=== PATIENT | male | born 1940 | race Caucasian/White ===

== ENCOUNTER → 2018-07-09 | Outpatient (REF) | payer MEDICARE ==
[2018-07-09 11:53] LABS: HEMATOCRIT 40.1 % (42.0-52.0); HEMOGLOBIN 13.7 g/dl (13.5-17.5); MEAN CORPUSCULAR HEMOGLOBIN 30.6 pg (27.0-33.0); MEAN CORPUSCULAR HGB CONC 34.2 g/dl (32.0-36.5); MEAN CORPUSCULAR VOLUME 89.5 fl (80.0-96.0); PLATELET COUNT, AUTOMATED 223 10^3/uL (150-450); RED BLOOD COUNT 4.48 10^6/uL (4.30-6.10); RED CELL DISTRIBUTION WIDTH 12.9 % (11.5-14.5); WHITE BLOOD COUNT 6.6 10^3/uL (4.0-10.0)
[2018-07-09 12:29] LABS: TOTAL 25(OH) VITAMIN D 26.3 NG/ML (30.0-100.0)
[2018-07-09 12:31] LABS: FOLATE 14.1 NG/ML (>5.4); VITAMIN B12 LEVEL 528 PG/ML (247-911)
[2018-07-09 12:49] LABS: MAU/CREAT RATIO 5.6 MCG/MG (0.0-30.0)
[2018-07-09 13:05] LABS: ALBUMIN 3.5 GM/DL (3.2-5.2); ALBUMIN/GLOBULIN RATIO 1.25 (1.00-1.93); ALKALINE PHOSPHATASE 129 U/L (45-117); ALT/SGPT 22 U/L (12-78); ANION GAP 7 MEQ/L (8-16); AST/SGOT 19 U/L (7-37); BILIRUBIN,TOTAL 0.5 MG/DL (0.2-1.0); BLOOD UREA NITROGEN 17 MG/DL (7-18); CALCIUM LEVEL 8.7 MG/DL (8.8-10.2); CARBON DIOXIDE LEVEL 30 MEQ/L (21-32); CHLORIDE LEVEL 106 MEQ/L (98-107); CHOLESTEROL LEVEL 154 MG/DL (<200); CREATININE FOR GFR 0.98 MG/DL (0.70-1.30); GLOMERULAR FILTRATION RATE > 60.0 (>42); GLUCOSE, FASTING 103 MG/DL (70-100); HDL CHOLESTEROL 55 MG/DL (>40); LDL CHOLESTEROL 83.4 MG/DL (<100); NON-HDL-C 99 MG/DL; POTASSIUM SERUM 4.6 MEQ/L (3.5-5.1); SODIUM LEVEL 143 MEQ/L (136-145); TOTAL PROTEIN 6.3 GM/DL (6.4-8.2); TRIGLYCERIDES LEVEL 78 MG/DL (<150)
[2018-07-09 13:22] LABS: ESTIMATED AVERAGE GLUCOSE 126 MG/DL (60-110)
== END ==
LOC: M SFHCPLAZ 09:16
DX: E11.9 Type 2 diabetes mellitus without complications (principal); R20.2 Paresthesia of skin; Z13.220 Encounter for screening for lipoid disorders; K59.00 Constipation, unspecified; E55.9 Vitamin D deficiency, unspecified; Z79.899 Other long term (current) drug therapy
CPT/HCPCS: 82746

== ENCOUNTER → 2018-09-09 | Outpatient (CLI) | payer MEDICARE | LOC: M RAD 06:31 | DX: I87.321 Chronic venous hypertension (idiopathic) with inflammation of right lower extremity (principal); Z53.9 Procedure and treatment not carried out, unspecified reason ==

== ENCOUNTER → 2018-09-19 | Outpatient (CLI) | payer MEDICARE | LOC: M RAD 12:50 | DX: L97.929 Non-pressure chronic ulcer of unspecified part of left lower leg with unspecified severity (principal); I87.312 Chronic venous hypertension (idiopathic) with ulcer of left lower extremity | CPT/HCPCS: 93971 ==

== ENCOUNTER 2018-12-23 10:19 | Emergency (ER) | payer MEDICARE ==
[~2018-12-23] VITALS: Ht 177.8 cm; Wt 77.7 kg
[2018-12-23] MEDS ORDERED: FLOM0.4C39 PO (10:47)
[2018-12-23] MEDS ORDERED: METF500T13 PO (10:47)
[2018-12-23] MEDS ORDERED: ASPI1TAB15 PO (10:47)
[2018-12-23] MEDS ORDERED: TRIA1CR80 TOP (10:47)
[2018-12-23] MEDS ORDERED: VITATAB11 PO (10:47)
[2018-12-23] MEDS ORDERED: COLA100C5 PO (10:47)
[2018-12-23] MEDS ORDERED: VITA100067 PO (10:47)
[2018-12-23] MEDS ORDERED: PRAV10TA4 PO (10:47)
[2018-12-23 11:04] LABS: BASO # 0.1 10^3/uL (0.0-0.2); BASO % 0.9 % (0.0-1.0); EOS # 0.1 10^3/uL (0.0-0.50); EOS % 1.1 % (0.0-3.0); HEMATOCRIT 36.6 % (42.0-52.0); HEMOGLOBIN 12.7 g/dl (13.5-17.5); LYMPH # 1.4 10^3/uL (1.5-4.5); LYMPH % 18.2 % (24.0-44.0); MEAN CORPUSCULAR HEMOGLOBIN 30.8 pg (27.0-33.0); MEAN CORPUSCULAR HGB CONC 34.7 g/dl (32.0-36.5); MEAN CORPUSCULAR VOLUME 88.8 fl (80.0-96.0); MONO # 0.7 10^3/uL (0.0-0.8); MONO % 8.6 % (0.0-5.0); NEUTROPHILS # 5.3 10^3/uL (1.8-7.7); NEUTROPHILS % 70.7 % (36.0-66.0); PLATELET COUNT, AUTOMATED 230 10^3/uL (150-450); RED BLOOD COUNT 4.12 10^6/uL (4.30-6.10); WHITE BLOOD COUNT 7.5 10^3/uL (4.0-10.0)
[2018-12-23 11:17] LABS: ALBUMIN 3.1 GM/DL (3.2-5.2); ALT/SGPT 17 U/L (12-78); BILIRUBIN,DIRECT 0.2 MG/DL (0.0-0.2); BILIRUBIN,TOTAL 0.6 MG/DL (0.2-1.0); BLOOD UREA NITROGEN 16 MG/DL (7-18); CALCIUM LEVEL 8.5 MG/DL (8.8-10.2); CARBON DIOXIDE LEVEL 25 MEQ/L (21-32); CHLORIDE LEVEL 105 MEQ/L (98-107); CK-MB VALUE MASS < 1.0 NG/ML (<3.6); CPK CREATINE PHOSPHOKINASE 38 U/L (39-308); CREATININE FOR GFR 0.89 MG/DL (0.70-1.30); GLOMERULAR FILTRATION RATE > 60.0 (>42); GLUCOSE, FASTING 115 MG/DL (70-100); MB/CK RELATIVE INDEX 2.63 (< OR =4); POTASSIUM SERUM 4.4 MEQ/L (3.5-5.1); SODIUM LEVEL 138 MEQ/L (136-145); TOTAL PROTEIN 6.1 GM/DL (6.4-8.2); TROPONIN I < 0.02 NG/ML (< 0.10)
[2018-12-23] MEDS ORDERED: MECLIZINE 25 MG TABLET PO ONE (12:00)
--- NOTE | 2018-12-23 12:20 | REP ---
CT Head without contrast HISTORY: Dizziness half COMPARISON: None Areas of decreased attenuation are present in the periventricular white matter. This represents small-vessel ischemic disease. There is no intraparenchymal hemorrhage, acute infarct, mass or midline shift. The ventricular system and cortical sulci as well as subarachnoid space in the posterior fossa are dilated consistent with mild volume loss. There is no extra cerebral collection. There is no fracture. The visualized sinuses are clear. IMPRESSION: 1. Small vessel ischemic disease. 2. Mild volume loss. Electronically Signed by Jimmy Isaacs MD 12/23/2018 12:12 P
--- NOTE | 2018-12-23 14:35 | REP ---
MR BRAIN WITHOUT CONTRAST: HISTORY: Dizziness. COMPARISON: CT 12/23/2018. Areas of increased signal intensity on T2-weighted images are present in the periventricular and subcortical white matter. This represents small vessel ischemic disease. There is no intraparenchymal hemorrhage, infarct, mass or midline shift. The ventricular system and cortical sulci as well as subarachnoid space and the posterior fossa are dilated consistent with mild volume loss. There is no extracerebral collection. Mucosal thickening is present in the left maxillary sinus. IMPRESSION: 1. Small vessel ischemic disease. 2. Mild volume loss. Electronically Signed by Jimmy Isaacs MD 12/23/2018 02:39 P
[2018-12-23] MEDS ORDERED: MECL-86 PO (15:44)
[2018-12-23 16:01] VITALS: BP 185/80
--- NOTE | 2018-12-24 17:31 | ECGEPIP ---
Stationary ECG Study [facility] - ED Test Date: 2018-12-23 Pat Name: JOHNNY BENZ Department: Room: - Gender: M [employer]: : 1940 Requested By: Wallace Segundo Order Number: [id number] Reading MD: Dilma Sauer Measurements Intervals [place] Rate: 54 P: 60 WI: 166 QRS: 68 QRSD: 152 T: 52 QT: 423 QTc: 401 Interpretive Statements SINUS BRADYCARDIA RIGHT BUNDLE BRANCH BLOCK NO PRIOR FOR COMPARISON Electronically Signed On 12-24-2018 17:31:32 EST by Dilma Sauer
== END 2018-12-23 16:06 | disposition home or self-care (01) ==
LOC: M ED 10:19 → EDBD 10:19 → M ED 16:06
DX: H83.09 Labyrinthitis, unspecified ear (principal); R00.1 Bradycardia, unspecified; I45.10 Unspecified right bundle-branch block; I51.9 Heart disease, unspecified; E11.9 Type 2 diabetes mellitus without complications; N40.0 Benign prostatic hyperplasia without lower urinary tract symptoms; Z88.0 Allergy status to penicillin; Z79.899 Other long term (current) drug therapy; Z79.84 Long term (current) use of oral hypoglycemic drugs; Z79.82 Long term (current) use of aspirin

== ENCOUNTER → 2019-04-04 | Outpatient (CLI) | payer MEDICARE ==
[~2019-04-04] MED LIST: ASPI1TAB15 PO; COLA100C5 PO; FLOM0.4C39 PO; MECL-86 PO; METF500T13 PO; PRAV10TA4 PO; TRIA1CR80 TOP; VITA100067 PO; VITATAB11 PO
[2019-04-04 11:20] LABS: BLOOD UREA NITROGEN 16 MG/DL (7-18); CREATININE FOR GFR 0.85 MG/DL (0.70-1.30); GLOMERULAR FILTRATION RATE > 60.0 (>42)
== END ==
LOC: M LAB 10:22
PROVIDERS: ATTEND Psychiatry & Neurology Neurology
DX: I10 Essential (primary) hypertension (principal)

== ENCOUNTER → 2019-07-10 | Outpatient (REF) | payer MEDICARE ==
[2019-07-10 12:40] LABS: HEMOGLOBIN A1c 6.2 %
[2019-07-10 12:44] LABS: BLOOD UREA NITROGEN 14 MG/DL (7-18); CARBON DIOXIDE LEVEL 30 MEQ/L (21-32); CHLORIDE LEVEL 105 MEQ/L (98-107); CREATININE FOR GFR 0.93 MG/DL (0.70-1.30); GLOMERULAR FILTRATION RATE > 60.0 (>42); GLUCOSE, FASTING 105 MG/DL (70-100); POTASSIUM SERUM 4.1 MEQ/L (3.5-5.1); SODIUM LEVEL 140 MEQ/L (136-145)
[2019-07-10 12:54] LABS: MALB URINE SIEMENS 17.1 MG/L
== END ==
LOC: M SFHCPLAZ 09:49
PROVIDERS: ATTEND Family Medicine
DX: E11.9 Type 2 diabetes mellitus without complications (principal)

== ENCOUNTER 2020-11-07 15:05 | Emergency (ER) | payer MEDICARE ==
[~2020-11-07] VITALS: Ht 177.8 cm; Wt 75.9 kg
[~2020-11-07 15:05] MED LIST changes: +ASPI-546 PO; -ASPI1TAB15 PO
[2020-11-07 17:39] LABS: BASO # 0.1 10^3/uL (0.0-0.2); BASO % 0.6 % (0.0-1.0); EOS % 0.4 % (0.0-3.0); HEMATOCRIT 40.8 % (42.0-52.0); HEMOGLOBIN 13.8 g/dl (13.5-17.5); LYMPH # 1.4 10^3/uL (1.5-5.0); LYMPH % 15.1 % (24.0-44.0); MEAN CORPUSCULAR HGB CONC 33.8 g/dl (32.0-36.5); MEAN CORPUSCULAR VOLUME 88.7 fl (80.0-96.0); MONO # 0.9 10^3/uL (0.0-0.8); MONO % 9.3 % (0.0-5.0); NEUTROPHILS % 73.8 % (36.0-66.0); PLATELET COUNT, AUTOMATED 268 10^3/uL (150-450); WHITE BLOOD COUNT 9.4 10^3/uL (4.0-10.0)
[2020-11-07 18:04] LABS: BLOOD UREA NITROGEN 16 MG/DL (7-18); CALCIUM LEVEL 9.4 MG/DL (8.8-10.2); CARBON DIOXIDE LEVEL 29 MEQ/L (21-32); CHLORIDE LEVEL 102 MEQ/L (98-107); CREATININE FOR GFR 1.12 MG/DL (0.70-1.30); GLOMERULAR FILTRATION RATE > 60.0 (>42); GLUCOSE, FASTING 147 MG/DL (70-100); POTASSIUM SERUM 3.7 MEQ/L (3.5-5.1); SODIUM LEVEL 137 MEQ/L (136-145)
[2020-11-07] MEDS ORDERED: AMIT8CAP4 PO (18:17)
--- NOTE | 2020-11-07 19:06 | REP ---
INDICATION: fever, chills. COMPARISON: . TECHNIQUE: Upright PA and lateral chest. FINDINGS: The lung gilliam are clear. Cardiac size is normal. The hieu, mediastinum and skeletal structures are unremarkable. IMPRESSION: Essentially negative PA and lateral chest <Electronically signed by Clinton Osborn > 11/07/20 [id number]
[2020-11-07 19:41] VITALS: BP 178/76
== END 2020-11-07 19:45 | disposition home or self-care (01) ==
LOC: M ED 15:05
DX: B34.9 Viral infection, unspecified (principal); R68.83 Chills (without fever); E11.9 Type 2 diabetes mellitus without complications; I10 Essential (primary) hypertension; E78.5 Hyperlipidemia, unspecified; F10.21 Alcohol dependence, in remission; Z87.891 Personal history of nicotine dependence; Z79.899 Other long term (current) drug therapy; Z79.84 Long term (current) use of oral hypoglycemic drugs; Z79.82 Long term (current) use of aspirin

== ENCOUNTER → 2021-08-12 | Outpatient (CLI) | payer MEDICARE ==
[~2021-08-12] MED LIST changes: +AMIT8CAP4 PO; +LINZ290C; +MAGN400T2 PO; +POLY510P14; +PREVAGAN PO
== END ==
LOC: M LABSMTC 10:15
PROVIDERS: ATTEND Anesthesiology
DX: Z01.818 Encounter for other preprocedural examination (principal); Z11.52 Encounter for screening for COVID-19

== ENCOUNTER 2021-08-17 06:58 | Day surgery (SDC) | payer MEDICARE ==
[~2021-08-17] VITALS: Ht 177.8 cm; Wt 81.6 kg
[~2021-08-17 06:58] MED LIST changes: +NS 1,000 ML IV ONE
[2021-08-17] MEDS ORDERED: LIDOCAINE 2% 100MG/5ML SDV (FOR ANES.) As Ordered ONE (08:05)
[2021-08-17] MEDS ORDERED: propofoL 200 MG/20 ML VIAL As Ordered ONE ×2 (08:05→08:28)
[2021-08-17] MEDS ORDERED: hydrALAZINE 20MG/ML 1ML VIAL (J0360 PER 20MG) As Ordered ONE (08:13)
--- NOTE | 2021-08-17 08:36 | ROOR ---
Patient Name: Sushil Vivas Procedure Date: 08/17/2021 8:04 AM Date of : 1940 Age: 80 Room: [facility] Gender: Male Note Status: Finalized Procedure: Colonoscopy Indications: Change in bowel habits, Constipation Providers: Perez Campos MD Referring MD: BRIANNA SAGASTUME DO Requesting Provider: Medicines: Monitored Anesthesia Care Complications: No immediate complications. Procedure: Pre-Anesthesia Assessment: - The heart rate, respiratory rate, oxygen saturations, blood pressure, adequacy of pulmonary ventilation, and response to care were monitored throughout the procedure. The Colonoscope was introduced through the anus and advanced to the cecum, identified by appendiceal orifice and ileocecal valve. The colonoscopy was performed without difficulty. The patient tolerated the procedure well. The quality of the bowel preparation was good. Findings: The perianal and digital rectal examinations were normal. Two sessile polyps were found in the hepatic flexure and cecum. The polyps were diminutive in size. These polyps were removed with a jumbo cold forceps. Resection and retrieval were complete. Small Internal Hemorrhoids. The exam was otherwise without abnormality on direct and retroflexion views. Impression: - Two diminutive polyps at the hepatic flexure and in the cecum, removed with a jumbo cold forceps. Resected and retrieved. - Small Internal Hemorrhoids. - The examination was otherwise normal on direct and retroflexion views. Recommendation: - Continue present medications. - Repeat colonoscopy is not recommended for surveillance. - Repeat colonoscopy PRN. - RE: Your urinary symptoms. The rectal/prostate is normal to my exam today, however please follow up with your PCP to discuss your significant urinary symptoms, as these may warrant a referral to a urologist. Procedure Code(s): --- Professional --- 15668, Colonoscopy, flexible; with biopsy, single or multiple Diagnosis Code(s): --- Professional --- K59.00, Constipation, unspecified R19.4, Change in bowel habit K63.5, Polyp of colon CPT copyright 2019 [employer]. All rights reserved. The codes documented in this report are preliminary and upon detention deputy review may be revised to meet current compliance requirements. Perez Campos MD Perez Campos MD 08/17/2021 8:36:34 AM Electronically signed by Perez Campos MD Number of Addenda: 0 Note Initiated On: 08/17/2021 8:04 AM Estimated Blood Loss: Estimated blood loss: none.
[2021-08-17 08:50] VITALS: BP 160/75
== END 2021-08-17 09:04 | disposition home or self-care (01) ==
LOC: M OPP 06:58
PROVIDERS: ATTEND Internal Medicine Gastroenterology
DX: K63.5 Polyp of colon (principal); K57.30 Diverticulosis of large intestine without perforation or abscess without bleeding; K64.8 Other hemorrhoids; R19.4 Change in bowel habit; Z79.82 Long term (current) use of aspirin; Z79.84 Long term (current) use of oral hypoglycemic drugs; Z88.0 Allergy status to penicillin
CPT/HCPCS: 45380; 88305; J0360

== ENCOUNTER → 2021-11-14 | Outpatient (CLI) | payer MEDICARE ==
[~2021-11-14] MED LIST changes: +ISOVUE-370 76% 100ML VIAL As Ordered ONE; -NS 1,000 ML IV ONE
--- NOTE | 2021-11-16 12:26 | REPVR ---
PROCEDURE INFORMATION: Exam: CT Head Without And With Contrast Exam date and time: 11/14/2021 10:43 AM Age: 81 years old Clinical indication: Headache; Dizziness and giddiness, mild cognitive impairment. TECHNIQUE: Imaging protocol: Computed tomography of the head without and with intravenous contrast. Radiation optimization: All CT scans at this facility use at least one of these dose optimization techniques: automated exposure control; mA and/or kV adjustment per patient size (includes targeted exams where dose is matched to clinical indication); or iterative reconstruction. Contrast material: ISO 370; Contrast volume: 75 ml; Contrast route: INTRAVENOUS (IV); COMPARISON: MRI-Brain without Contrast 12/23/2018 1:49 PM FINDINGS: Brain: There is low attenuation abnormality in the periventricular white matter consistent with chronic microvascular ischemic changes. There is moderate cerebral and cerebellar atrophy. Cerebral ventricles: No ventriculomegaly. Paranasal sinuses: Visualized sinuses are unremarkable. No fluid levels. Mastoid air cells: Visualized mastoid air cells are well aerated. Vasculature: There is moderate intracranial vascular calcification. Bones/joints: Unremarkable. No acute fracture. Soft tissues: Unremarkable. There is no abnormal enhancement. IMPRESSION: 1. There is low attenuation abnormality in the periventricular white matter consistent with chronic microvascular ischemic changes. If an acute infarct is a clinical concern, follow-up MRI with diffusion imaging is recommended. 2. There is moderate cerebral and cerebellar atrophy. Electronically signed by: Kiko Yadav On 11/16/2021 12:25:42 PM
== END ==
LOC: M RAD 09:54
PROVIDERS: ATTEND Physician Assistant
DX: R42 Dizziness and giddiness (principal); G31.84 Mild cognitive impairment of uncertain or unknown etiology
CPT/HCPCS: 70470; Q9967

== ENCOUNTER 2022-11-10 08:03 | Emergency (ER) | payer MEDICARE ==
[~2022-11-10] VITALS: Ht 177.8 cm; Wt 75.8 kg
[~2022-11-10 08:03] MED LIST changes: -DONE10TA90; -HOLTER MONITOR XX; -MEMA10TA19
[2022-11-10] MEDS ORDERED: MEMA10TA19 (08:20)
[2022-11-10] MEDS ORDERED: DONE10TA90 (08:20)
[2022-11-10] MEDS ORDERED: NS 500 ML IV ONE (08:50)
[2022-11-10] MEDS ORDERED: ISOVUE-370 76% 100ML VIAL As Ordered ONE (08:58)
[2022-11-10 09:35] LABS: BASO # 0.1 10^3/uL (0.0-0.2); BASO % 1.3 % (0.0-1.0); EOS # 0.1 10^3/uL (0.0-0.5); EOS % 1.3 % (0.0-3.0); HEMATOCRIT 41.1 % (42.0-52.0); HEMOGLOBIN 13.9 g/dl (13.5-17.5); LYMPH # 1.5 10^3/uL (1.5-5.0); LYMPH % 14.5 % (24.0-44.0); MEAN CORPUSCULAR HEMOGLOBIN 30.8 pg (27.0-33.0); MEAN CORPUSCULAR HGB CONC 33.8 g/dl (32.0-36.5); MEAN CORPUSCULAR VOLUME 91.1 fl (80.0-96.0); MONO # 0.9 10^3/uL (0.0-0.8); MONO % 9.2 % (2.0-8.0); NEUTROPHILS # 7.3 10^3/uL (1.5-8.5); NEUTROPHILS % 72.9 % (36.0-66.0); PLATELET COUNT, AUTOMATED 255 10^3/uL (150-450); RED BLOOD COUNT 4.51 10^6/uL (4.30-6.10)
[2022-11-10 09:37] LABS: INR 0.9; PROTHROMBIN TIME 12.3 SECONDS (12.5-14.5)
[2022-11-10 09:38] LABS: PARTIAL THROMBOPLASTIN TIME 25.2 SECONDS (24.8-34.2)
[2022-11-10 09:56] LABS: LIPASE 24 U/L (12-53); MAGNESIUM LEVEL 1.7 MG/DL (1.8-2.4)
[2022-11-10 09:58] LABS: ALBUMIN 3.8 G/DL (3.2-5.2); ALKALINE PHOSPHATASE 119 U/L (46-116); ALT/SGPT 18 U/L (7.0-40); AST/SGOT 20 U/L (<34); BILIRUBIN,DIRECT 0.3 MG/DL (<0.4); BILIRUBIN,TOTAL 0.7 MG/DL (0.3-1.2); BLOOD UREA NITROGEN 16 MG/DL (9-23); CALCIUM LEVEL 9.7 MG/DL (8.3-10.6); CARBON DIOXIDE LEVEL 28 MMOL/L (20-31); CHLORIDE LEVEL 100 MMOL/L (98-107); CK-MB VALUE MASS < 1.0 NG/ML (<3.6); CPK CREATINE PHOSPHOKINASE 35 U/L (46-171); CREATININE FOR GFR 0.96 MG/DL (0.70-1.30); GLOMERULAR FILTRATION RATE > 60.0 (>35); GLUCOSE, FASTING 136 MG/DL (74-106); MB/CK RELATIVE INDEX 2.85 (< OR =4); POTASSIUM SERUM 3.8 MMOL/L (3.5-5.1); SODIUM LEVEL 137 MMOL/L (136-145); TOTAL PROTEIN 6.6 G/DL (5.7-8.2)
[2022-11-10 10:00] LABS: FREE T4 1.51 NG/DL (0.89-1.76)
[2022-11-10 10:01] LABS: THYROID STIMULATING HORMONE 2.002 uIU/ML (0.55-4.78)
[2022-11-10 10:47] LABS: CK-MB VALUE MASS < 1.0 NG/ML (<3.6)
[2022-11-10 10:48] LABS: CPK CREATINE PHOSPHOKINASE 27 U/L (46-171)
[2022-11-10] MEDS ORDERED: HOLTER MONITOR XX (12:27)
[2022-11-10 13:01] VITALS: BP 185/85
== END 2022-11-10 13:30 | disposition home or self-care (01) ==
LOC: M ED 08:03
DX: R53.1 Weakness (principal); R00.1 Bradycardia, unspecified; R94.31 Abnormal electrocardiogram [ECG] [EKG]; G31.9 Degenerative disease of nervous system, unspecified; K21.9 Gastro-esophageal reflux disease without esophagitis; Z88.0 Allergy status to penicillin; Z79.899 Other long term (current) drug therapy; Z79.82 Long term (current) use of aspirin; Z79.84 Long term (current) use of oral hypoglycemic drugs
CPT/HCPCS: 70450; 70496; 70498; 71046; 80047; 80048; 80076; 81002; 82550; 82553; 83690; 83735; 83880; 84439; 84443; 84484; 85025; 85610; 85730; 87040; 87486; 87581; 87633; 87798; 93005; 93041; 93225; 93226; 94760; 96360; 99285; Q9967

== ENCOUNTER → 2022-11-10 | Outpatient (CLI) | payer MEDICARE ==
[~2022-11-10] MED LIST changes: +DONE10TA90; +HOLTER MONITOR XX; -ISOVUE-370 76% 100ML VIAL As Ordered ONE; +MEMA10TA19
== END ==
LOC: M EKG 12:39
PROVIDERS: ATTEND Emergency Medicine
DX: I45.10 Unspecified right bundle-branch block (principal)

== ENCOUNTER 2023-10-15 11:17 | Observation (INO) | payer MEDICARE ==
[~2023-10-15] VITALS: Ht 177.8 cm; Wt 71.6 kg
[~2023-10-15 11:17] MED LIST changes: +DONE10TA90; +HOLTER MONITOR XX; +MEMA10TA19
[2023-10-15 13:37] LABS: BASO # 0.1 10^3/uL (0.0-0.2); EOS % 0.4 % (0.0-3.0); HEMATOCRIT 35.9 % (42.0-52.0); HEMOGLOBIN 12.2 g/dl (13.5-17.5); LYMPH # 1.4 10^3/uL (1.5-5.0); LYMPH % 13.6 % (24.0-44.0); MEAN CORPUSCULAR HEMOGLOBIN 31.2 pg (27.0-33.0); MEAN CORPUSCULAR VOLUME 91.8 fl (80.0-96.0); MONO # 0.9 10^3/uL (0.0-0.8); MONO % 9.1 % (2.0-8.0); NEUTROPHILS # 7.8 10^3/uL (1.5-8.5); NEUTROPHILS % 75.3 % (36.0-66.0); PLATELET COUNT, AUTOMATED 258 10^3/uL (150-450); RED BLOOD COUNT 3.91 10^6/uL (4.30-6.10); WHITE BLOOD COUNT 10.4 10^3/uL (4.0-10.0)
[2023-10-15 13:58] LABS: CK-MB VALUE MASS < 1.0 NG/ML (<3.6)
[2023-10-15 14:02] LABS: ALBUMIN 3.4 G/DL (3.2-5.2); ALKALINE PHOSPHATASE 102 U/L (46-116); ALT/SGPT 17 U/L (7.0-40); AST/SGOT 17 U/L (<34); BILIRUBIN,TOTAL 0.7 MG/DL (0.3-1.2); BLOOD UREA NITROGEN 26 MG/DL (9-23); CALCIUM LEVEL 8.9 MG/DL (8.3-10.6); CARBON DIOXIDE LEVEL 26 MMOL/L (20-31); CHLORIDE LEVEL 104 MMOL/L (98-107); CPK CREATINE PHOSPHOKINASE 54 U/L (46-171); CREATININE FOR GFR 1.07 MG/DL (0.70-1.30); GLOMERULAR FILTRATION RATE > 60.0 (>35); GLUCOSE, FASTING 173 MG/DL (74-106); MAGNESIUM LEVEL 1.9 MG/DL (1.8-2.4); MB/CK RELATIVE INDEX 1.85 (< OR =4); POTASSIUM SERUM 4.4 MMOL/L (3.5-5.1); SODIUM LEVEL 138 MMOL/L (136-145); TOTAL PROTEIN 5.9 G/DL (5.7-8.2)
[2023-10-15] MEDS ORDERED: CLINDAMYCIN 600 MG in IV 1 EA IV ONE (16:10)
[2023-10-15 16:19] LABS: RSV AMPLIFICATION NEGATIVE (NEGATIVE)
[2023-10-15] MEDS ORDERED: GLUCAGON INJ 1MG VIAL SC PRN (16:20)
[2023-10-15] MEDS ORDERED: GLUCOSE 4GM CHEW TABLET PO PRN (16:20)
[2023-10-15] MEDS ORDERED: DEXTROSE 50% 50ML SYRINGE IV PRN (16:20)
[2023-10-15] MEDS ORDERED: ceFAZolin 1GM VIAL IM SCH (16:25)
[2023-10-15 16:42] LABS: FOLATE > 24.00 NG/ML (>5.4); VITAMIN B12 LEVEL 603 PG/ML (211-911)
[2023-10-15 16:51] LABS: PROCALCITONIN <0.04 ng/ml
[2023-10-15 16:53] LABS: ERYTHROCYTE SEDIMENTATION RATE 13 mm/hr (0-20)
[2023-10-15] MEDS ORDERED: MED REC IN PROGRESS XX SCH (17:45)
[2023-10-15] MEDS: ceFAZolin SOD 1 GM in D5W MINI-BAG PLUS 50 ML IV SCH (17:58)
[2023-10-15] MEDS: INSULIN LISPRO (NovoLOG) PER UNIT SC SCH (19:03)
[2023-10-15] MEDS ORDERED: EQL50TAB2 PO (19:15)
[2023-10-15] MEDS ORDERED: VITAMIN D PO (19:18)
[2023-10-15] MEDS ORDERED: ASPI81TA26 PO (19:19)
[2023-10-15] MEDS ORDERED: METF500T13 PO (19:22)
[2023-10-15] MEDS ORDERED: HOME MED LIST COMPLETE! XX SCH (19:35)
[2023-10-15] MEDS ORDERED: INSULIN LISPRO (NovoLOG) PER UNIT SC SCH (21:00)
[2023-10-16] MEDS: ceFAZolin SOD 1 GM in D5W MINI-BAG PLUS 50 ML IV SCH ×2 (03:01→11:52)
[2023-10-16 06:03] LABS: BASO # 0.1 10^3/uL (0.0-0.2); BASO % 1.1 % (0.0-1.0); EOS # 0.1 10^3/uL (0.0-0.5); EOS % 1.3 % (0.0-3.0); HEMATOCRIT 37.1 % (42.0-52.0); HEMOGLOBIN 12.5 g/dl (13.5-17.5); LYMPH # 1.7 10^3/uL (1.5-5.0); LYMPH % 17.8 % (24.0-44.0); MEAN CORPUSCULAR HEMOGLOBIN 30.9 pg (27.0-33.0); MEAN CORPUSCULAR HGB CONC 33.7 g/dl (32.0-36.5); MEAN CORPUSCULAR VOLUME 91.8 fl (80.0-96.0); MONO % 10.3 % (2.0-8.0); NEUTROPHILS # 6.5 10^3/uL (1.5-8.5); NEUTROPHILS % 68.9 % (36.0-66.0); PLATELET COUNT, AUTOMATED 239 10^3/uL (150-450); RED BLOOD COUNT 4.04 10^6/uL (4.30-6.10); WHITE BLOOD COUNT 9.4 10^3/uL (4.0-10.0)
[2023-10-16 06:36] LABS: BLOOD UREA NITROGEN 21 MG/DL (9-23); CARBON DIOXIDE LEVEL 25 MMOL/L (20-31); CHLORIDE LEVEL 106 MMOL/L (98-107); CREATININE FOR GFR 0.95 MG/DL (0.70-1.30); GLOMERULAR FILTRATION RATE > 60.0 (>35); GLUCOSE, FASTING 115 MG/DL (74-106); MAGNESIUM LEVEL 1.7 MG/DL (1.8-2.4); POTASSIUM SERUM 4.2 MMOL/L (3.5-5.1); SODIUM LEVEL 141 MMOL/L (136-145)
[2023-10-16] MEDS: INSULIN LISPRO (NovoLOG) PER UNIT SC SCH ×3 (07:30→17:06)
[2023-10-16] MEDS: LACTOBACILLUS ACIDOPHILUS CAP (BACID) PO SCH ×2 (08:00→11:49)
[2023-10-16] MEDS ORDERED: BACITRACIN OINTMENT 30GM TUBE TOP SCH (09:00)
[2023-10-16] MEDS ORDERED: DONEPEZIL 5 MG TAB PO SCH (09:00)
[2023-10-16] MEDS ORDERED: VITAMIN B COMPLEX/VIT C CAP PO SCH (09:00)
[2023-10-16] MEDS ORDERED: ASPIRIN 81MG ENTERIC TABLET PO SCH (09:00)
[2023-10-16 10:52] VITALS: BP 164/71; TEMP 97.3; O2SAT 98
[2023-10-16 11:51] VITALS: BP 155/62
[2023-10-16 14:00] VITALS: BP 174/77; TEMP 97.9; O2SAT 98
[2023-10-16] MEDS ORDERED: FLEET ENEMA PR PRN (15:25)
[2023-10-16] MEDS ORDERED: MOM 30ML SUSPENSION UDC PO SCH (15:25)
[2023-10-16] MEDS ORDERED: SENOKOT S TAB PO SCH (15:25)
[2023-10-16] MEDS ORDERED: MAG SULF 1GM/100ML (MAG RUN) 1 GM in IV 1 EA IV ONE (16:30)
[2023-10-16] MEDS ORDERED: BACIOIN5 OP (16:33)
[2023-10-16] MEDS ORDERED: CEPH500T PO (16:33)
[2023-10-16] MEDS ORDERED: AMLO1TAB25 PO (16:33)
[2023-10-16] MEDS ORDERED: SELF1KIT MC (16:33)
[2023-10-16] MEDS ORDERED: BACI1CAP PO (16:33)
[2023-10-16] MEDS ORDERED: BACI500O8 TOP (16:33)
[2023-10-16] MEDS ORDERED: ceFAZolin SOD 1 GM in D5W MINI-BAG PLUS 50 ML IV SCH (16:45)
[2023-10-16] MEDS ORDERED: MIRALAX *UNIT DOSE* 17GM PACKET PO SCH (21:00)
[2023-10-17] MEDS ORDERED: ARIC1TAB PO (14:14)
== END 2023-10-16 18:09 | disposition home or self-care (01) ==
LOC: M ED 11:17 → INTOOBSV 16:15 → M ED INP 16:15 → ENRESERV 10-16 10:16 → M MSPAV 10-16 10:59
PROVIDERS: ADMIT General Practice; ATTEND General Practice
DX: R26.0 Ataxic gait (principal); Z91.81 History of falling; T44.0X5A Adverse effect of anticholinesterase agents, initial encounter; R00.1 Bradycardia, unspecified; L03.032 Cellulitis of left toe; S91.112A Laceration without foreign body of left great toe without damage to nail, initial encounter; S51.011A Laceration without foreign body of right elbow, initial encounter; W19.XXXA Unspecified fall, initial encounter; Y92.89 Other specified places as the place of occurrence of the external cause; I16.0 Hypertensive urgency; R41.0 Disorientation, unspecified; K59.00 Constipation, unspecified; E11.9 Type 2 diabetes mellitus without complications; E55.9 Vitamin D deficiency, unspecified; E53.9 Vitamin B deficiency, unspecified; E78.5 Hyperlipidemia, unspecified; I87.321 Chronic venous hypertension (idiopathic) with inflammation of right lower extremity; D72.829 Elevated white blood cell count, unspecified; N40.1 Benign prostatic hyperplasia with lower urinary tract symptoms; Z88.0 Allergy status to penicillin; Z79.899 Other long term (current) drug therapy; Z79.82 Long term (current) use of aspirin; Z79.84 Long term (current) use of oral hypoglycemic drugs; Z87.891 Personal history of nicotine dependence; Z66 Do not resuscitate
CPT/HCPCS: 36415; 51701; 70450; 70551; 71045; 72125; 73080; 73552; 73590; 73630; 80048; 80053; 81001; 82550; 82553; 82607; 82746; 83735; 84145; 84443; 84484; 85025; 85652; 86140; 87040; 87631; 93005; 93041; 94760; 96365; 96376; 97161; 97165; 97530; 99285; G0378; J0690; J0737; J1815

== ENCOUNTER → 2023-10-29 | Outpatient (REF) | payer MEDICARE ==
[~2023-10-29] MED LIST changes: +AMLO1TAB25 PO; +ARIC1TAB PO; +ASPI81TA26 PO; +BACI1CAP PO; +BACI500O8 TOP; +BACIOIN5 OP; +CEPH500T PO; +EQL50TAB2 PO; +SELF1KIT MC; +VITAMIN D PO
[2023-10-29 13:49] LABS: APPEARANCE, URINE HAZY (CLEAR); BACTERIA, URINE AUTO NEGATIVE (NEGATIVE); BILIRUBIN, URINE AUTO NEGATIVE (NEGATIVE); BLOOD, URINE BLOOD NEGATIVE (NEGATIVE); COLOR, URINE YELLOW (YELLOW); GLUCOSE, URINE (UA) AUTO NEGATIVE (NEGATIVE); KETONE, URINE AUTO NEGATIVE (NEGATIVE); LEUKOCYTE ESTERASE, URINE AUTO NEGATIVE (NEGATIVE); MUCUS, URINE SMALL (NEGATIVE); NITRITE, URINE AUTO NEGATIVE (NEGATIVE); PROTEIN, URINE AUTO NEGATIVE (NEGATIVE); RBC, URINE AUTO 0 /HPF (0-3); SPECIFIC GRAVITY URINE AUTO 1.018 (1.002-1.035); SQUAMOUS EPITHELIAL CELL UR AU 2 /HPF (0-6); UROBILINOGEN, URINE AUTO 0.2 mg/dL (0.0-2.0); WBC, URINE AUTO 2 /HPF (0-3)
== END ==
LOC: M SMT 12:42
PROVIDERS: ATTEND Urology
DX: R35.1 Nocturia (principal)

== ENCOUNTER 2024-05-24 16:03 | Emergency (ER) | payer MEDICARE ==
[~2024-05-24] VITALS: Ht 177.8 cm; Wt 71.4 kg
[~2024-05-24 16:03] MED LIST changes: +MEMA10TA; -MEMA10TA19
[2024-05-24 17:18] LABS: BASO # 0.1 10^3/uL (0.0-0.2); BASO % 1.3 % (0.0-1.0); EOS # 0.1 10^3/uL (0.0-0.5); EOS % 1.1 % (0.0-3.0); HEMATOCRIT 39.6 % (42.0-52.0); HEMOGLOBIN 13.8 g/dl (13.5-17.5); LYMPH # 1.1 10^3/uL (1.5-5.0); LYMPH % 11.8 % (24.0-44.0); MEAN CORPUSCULAR HEMOGLOBIN 30.3 pg (27.0-33.0); MEAN CORPUSCULAR HGB CONC 34.8 g/dl (32.0-36.5); MEAN CORPUSCULAR VOLUME 86.8 fl (80.0-96.0); MONO # 1.2 10^3/uL (0.0-0.8); MONO % 12.1 % (2.0-8.0); NEUTROPHILS # 6.9 10^3/uL (1.5-8.5); NEUTROPHILS % 72.7 % (36.0-66.0); PLATELET COUNT, AUTOMATED 333 10^3/uL (150-450); RED BLOOD COUNT 4.56 10^6/uL (4.30-6.10); WHITE BLOOD COUNT 9.5 10^3/uL (4.0-10.0)
[2024-05-24 17:30] LABS: ALBUMIN 3.6 G/DL (3.2-5.2); ALKALINE PHOSPHATASE 149 U/L (46-116); ALT/SGPT 17 U/L (7.0-40); AST/SGOT 15 U/L (<34); BILIRUBIN,DIRECT 0.2 MG/DL (<0.4); BILIRUBIN,TOTAL 0.7 MG/DL (0.3-1.2); BLOOD UREA NITROGEN 31 MG/DL (9-23); CALCIUM LEVEL 9.5 MG/DL (8.3-10.6); CARBON DIOXIDE LEVEL 25 MMOL/L (20-31); CHLORIDE LEVEL 105 MMOL/L (98-107); CK-MB VALUE MASS < 1.0 NG/ML (<3.6); CPK CREATINE PHOSPHOKINASE 51 U/L (46-171); CREATININE FOR GFR 1.01 MG/DL (0.70-1.30); GLOMERULAR FILTRATION RATE > 60.0 (>35); GLUCOSE, FASTING 340 MG/DL (74-106); MB/CK RELATIVE INDEX 1.96 (< OR =4); POTASSIUM SERUM 3.8 MMOL/L (3.5-5.1); SODIUM LEVEL 139 MMOL/L (136-145); TOTAL PROTEIN 6.4 G/DL (5.7-8.2)
[2024-05-24 17:31] LABS: THYROID STIMULATING HORMONE 1.366 uIU/ML (0.55-4.78)
[2024-05-24 17:37] VITALS: BP 180/80
[2024-05-24] MEDS: amLODIPine 5 MG TAB PO ONE (17:37)
[2024-05-24 18:48] VITALS: TEMP 97.5
[2024-05-24 21:10] VITALS: BP 168/82; O2SAT 98
== END 2024-05-24 21:56 | disposition home or self-care (01) ==
LOC: M ED 16:03 → EDBD 16:03 → M ED 21:56
DX: E86.0 Dehydration (principal); E11.9 Type 2 diabetes mellitus without complications; K21.9 Gastro-esophageal reflux disease without esophagitis; I45.19 Other right bundle-branch block; Z88.0 Allergy status to penicillin; Z79.1 Long term (current) use of non-steroidal anti-inflammatories (NSAID); Z79.84 Long term (current) use of oral hypoglycemic drugs; Z79.899 Other long term (current) drug therapy

== ENCOUNTER → 2024-06-18 | Outpatient (CLI) | payer MEDICARE ==
[2024-06-18 18:18] LABS: THYROID STIMULATING HORMONE 1.637 uIU/ML (0.55-4.78); TOTAL 25(OH) VITAMIN D 45.5 NG/ML (20.0-100.0)
[2024-06-18 18:19] LABS: FREE T4 1.29 NG/DL (0.89-1.76)
== END ==
LOC: M WUC 10:59
PROVIDERS: ATTEND Psychiatry & Neurology Neurology
DX: R68.83 Chills (without fever) (principal); E03.9 Hypothyroidism, unspecified; E55.9 Vitamin D deficiency, unspecified

== ENCOUNTER → 2025-02-12 | Outpatient (CLI) | payer MEDICARE | LOC: M WUC 10:50 | PROVIDERS: ATTEND Internal Medicine | DX: M17.11 Unilateral primary osteoarthritis, right knee (principal) ==

== ENCOUNTER 2025-03-03 13:55 | Emergency (ER) | payer MEDICARE ==
[~2025-03-03] VITALS: Ht 177.8 cm; Wt 73.8 kg
[2025-03-03 16:30] VITALS: BP 157/70; TEMP 98.9; O2SAT 98
== END 2025-03-03 16:52 | disposition home or self-care (01) ==
LOC: M ED 13:55 → EDBD 13:55 → M ED 16:52
DX: M17.11 Unilateral primary osteoarthritis, right knee (principal); R22.41 Localized swelling, mass and lump, right lower limb; E11.9 Type 2 diabetes mellitus without complications; K21.9 Gastro-esophageal reflux disease without esophagitis; Z88.0 Allergy status to penicillin; Z79.1 Long term (current) use of non-steroidal anti-inflammatories (NSAID); Z79.2 Long term (current) use of antibiotics; Z79.84 Long term (current) use of oral hypoglycemic drugs; Z79.899 Other long term (current) drug therapy

== ENCOUNTER 2025-11-01 11:24 | Emergency (ER) | payer MEDICARE, MEDICAID ==
[~2025-11-01] VITALS: Ht 177.8 cm; Wt 69.1 kg
[~2025-11-01 11:24] MED LIST changes: -EQL50TAB2 PO; -FLOM0.4C39 PO; +PRAV10TA PO; -PRAV10TA4 PO; +TAMS-18 PO; +VITA1TAB82 PO
[2025-11-01 12:54] LABS: BASO # 0.1 10^3/uL (0.0-0.2); BASO % 1.5 % (0.0-1.0); EOS # 0.2 10^3/uL (0.0-0.5); EOS % 2.2 % (0.0-3.0); LYMPH # 1.2 10^3/uL (1.5-5.0); LYMPH % 15.0 % (24.0-44.0); MONO # 0.7 10^3/uL (0.0-0.8); MONO % 9.0 % (2.0-8.0); NEUTROPHILS # 5.8 10^3/uL (1.5-8.5); NEUTROPHILS % 71.7 % (36.0-66.0); PLATELET COUNT, AUTOMATED 234 10^3/uL (150-450)
[2025-11-01 13:25] LABS: ALT/SGPT 14 U/L (7.0-40); AST/SGOT 18 U/L (<34); CALCIUM LEVEL 8.9 MG/DL (8.3-10.6); CARBON DIOXIDE LEVEL 29 MMOL/L (20-31); CHLORIDE LEVEL 104 MMOL/L (98-107); CK-MB VALUE MASS < 1.0 NG/ML (<3.6); CREATININE FOR GFR 1.00 MG/DL (0.70-1.30); GLOMERULAR FILTRATION RATE 74.7 (>35); POTASSIUM SERUM 4.8 MMOL/L (3.5-5.1); SODIUM LEVEL 141 MMOL/L (136-145)
[2025-11-01 13:27] LABS: CPK CREATINE PHOSPHOKINASE 22 U/L (46-171); INR 0.88
[2025-11-01 15:26] LABS: KETONE, URINE AUTO RFX NEGATIVE (NEGATIVE); LEUKOCYTE ESTERASE UR AUTO RFX NEGATIVE (NEGATIVE); MUCUS, URINE RFX SMALL (NEGATIVE); NITRITE, URINE AUTO RFX NEGATIVE (NEGATIVE); RBC, URINE AUTO RFX 1 /HPF (0-3); SQUAM EPITHELIAL CELL UR AURFX 0 /HPF (0-6); WBC, URINE AUTO RFX 0 /HPF (0-3)
[2025-11-01] MEDS ORDERED: SHOWER CHAIR XX (15:42)
[2025-11-01 15:45] VITALS: TEMP 96.5; O2SAT 100
[2025-11-01 16:09] VITALS: BP 164/82
== END 2025-11-01 16:16 | disposition home or self-care (01) ==
LOC: M ED 11:24
DX: R11.10 Vomiting, unspecified (principal); F03.94 Unspecified dementia, unspecified severity, with anxiety; Z88.0 Allergy status to penicillin; Z79.1 Long term (current) use of non-steroidal anti-inflammatories (NSAID); Z79.2 Long term (current) use of antibiotics; Z79.84 Long term (current) use of oral hypoglycemic drugs; Z79.899 Other long term (current) drug therapy